=== PATIENT | male | born 1970 | race American Indian/Alaskan Native ===

== ENCOUNTER 2017-08-27 10:14 | Outpatient (CLI) | payer MEDICAID ==
[2017-08-27 11:11] LABS: INR 1.98 (0.87-1.13)
== END 2017-08-27 10:15 | disposition home or self-care (01) ==
LOC: LAB 10:14
DX: I50.22 Chronic systolic (congestive) heart failure (principal); Z95.811 Presence of heart assist device
CPT/HCPCS: 36415; 85610

== ENCOUNTER 2017-09-07 10:29 | Outpatient (CLI) | payer MEDICAID ==
[2017-09-07 10:57] LABS: INR 2.57 (0.87-1.13)
[2017-09-07 11:03] LABS: Anion Gap 20 mmol/L; BUN/Creatinine Ratio 15; Blood Urea Nitrogen 22 mg/dL (9-20); Calcium 9.3 mg/dL (8.4-10.2); Carbon Dioxide 23 mmol/L (22-30); Chloride 101.4 mmol/L (98-107); Glucose 169 mg/dL (75-100); Potassium 4.5 mmol/L (3.6-5.0); Sodium 140 mmol/L (137-145)
== END 2017-09-07 10:30 | disposition home or self-care (01) ==
LOC: LAB 10:29
PROVIDERS: ATTEND Internal Medicine Cardiovascular Disease
DX: I50.22 Chronic systolic (congestive) heart failure (principal); Z79.01 Long term (current) use of anticoagulants; Z95.811 Presence of heart assist device
CPT/HCPCS: 36415; 80048; 83735; 85610

== ENCOUNTER 2017-09-10 08:36 | Outpatient (CLI) | payer MEDICAID ==
[2017-09-10 09:02] LABS: INR 2.97 (0.87-1.13)
== END 2017-09-10 08:37 | disposition home or self-care (01) ==
LOC: LAB 08:36
DX: Z48.812 Encounter for surgical aftercare following surgery on the circulatory system (principal); Z95.811 Presence of heart assist device; Z79.01 Long term (current) use of anticoagulants
CPT/HCPCS: 36415; 85610

== ENCOUNTER 2017-09-14 10:30 | Outpatient (CLI) | payer MEDICAID ==
[2017-09-14 10:55] LABS: INR 2.11 (0.87-1.13)
== END 2017-09-14 10:31 | disposition home or self-care (01) ==
LOC: LAB 10:30
DX: Z48.812 Encounter for surgical aftercare following surgery on the circulatory system (principal); Z95.811 Presence of heart assist device; Z79.01 Long term (current) use of anticoagulants
CPT/HCPCS: 36415; 85610

== ENCOUNTER 2017-09-17 13:37 | Outpatient (CLI) | payer MEDICAID ==
[2017-09-17 14:14] LABS: INR 2.09 (0.87-1.13)
== END 2017-09-17 13:38 | disposition home or self-care (01) ==
LOC: LAB 13:37
DX: Z48.812 Encounter for surgical aftercare following surgery on the circulatory system (principal); Z95.811 Presence of heart assist device
CPT/HCPCS: 36415; 85610

== ENCOUNTER 2017-09-21 09:54 | Outpatient (CLI) | payer MEDICAID ==
[2017-09-21 11:10] LABS: INR 2.9 (0.87-1.13)
== END 2017-09-21 09:55 | disposition home or self-care (01) ==
LOC: LAB 09:54
DX: Z48.812 Encounter for surgical aftercare following surgery on the circulatory system (principal); Z95.811 Presence of heart assist device
CPT/HCPCS: 36415; 85610

== ENCOUNTER 2017-11-11 09:45 | Outpatient (CLI) | payer MEDICAID ==
[2017-11-11 10:09] LABS: INR 2.14 (0.87-1.13)
== END 2017-11-11 09:46 | disposition home or self-care (01) ==
LOC: LAB 09:45
DX: Z48.812 Encounter for surgical aftercare following surgery on the circulatory system (principal); Z95.811 Presence of heart assist device
CPT/HCPCS: 36415; 85610

== ENCOUNTER 2017-11-19 10:45 | Outpatient (CLI) | payer MEDICAID ==
[2017-11-19 11:34] LABS: INR 2.21 (0.87-1.13)
== END 2017-11-19 10:46 | disposition home or self-care (01) ==
LOC: LAB 10:45
PROVIDERS: ATTEND Surgery
DX: Z48.812 Encounter for surgical aftercare following surgery on the circulatory system (principal); Z95.811 Presence of heart assist device
CPT/HCPCS: 36415; 85610

== ENCOUNTER 2017-12-10 09:42 | Outpatient (CLI) | payer MEDICAID ==
[2017-12-10 10:33] LABS: INR 2.45 (0.87-1.13)
== END 2017-12-10 09:43 | disposition home or self-care (01) ==
LOC: LAB 09:42
PROVIDERS: ATTEND Surgery
DX: Z48.812 Encounter for surgical aftercare following surgery on the circulatory system (principal); Z95.811 Presence of heart assist device
CPT/HCPCS: 36415; 85610

== ENCOUNTER 2018-01-07 11:44 | Outpatient (CLI) | payer MEDICAID ==
[2018-01-07 12:12] LABS: INR 2.73 (0.87-1.13)
== END 2018-01-07 11:45 | disposition home or self-care (01) ==
LOC: LAB 11:44
PROVIDERS: ATTEND Surgery
DX: Z48.812 Encounter for surgical aftercare following surgery on the circulatory system (principal); Z95.811 Presence of heart assist device
CPT/HCPCS: 36415; 85610

== ENCOUNTER 2018-02-24 09:49 | Outpatient (CLI) | payer MEDICAID ==
[2018-02-24 10:18] LABS: INR 1.41 (0.87-1.13)
== END 2018-02-24 09:50 | disposition home or self-care (01) ==
LOC: LAB 09:49
PROVIDERS: ATTEND Surgery
DX: R79.89 Other specified abnormal findings of blood chemistry (principal); Z95.811 Presence of heart assist device
CPT/HCPCS: 36415; 85610

== ENCOUNTER 2018-03-01 10:27 | Outpatient (CLI) | payer MEDICAID ==
[2018-03-01 11:06] LABS: INR 2.43 (0.87-1.13)
== END 2018-03-01 10:28 | disposition home or self-care (01) ==
LOC: LAB 10:27
PROVIDERS: ATTEND Surgery
DX: R79.1 Abnormal coagulation profile (principal); Z95.811 Presence of heart assist device; Z79.01 Long term (current) use of anticoagulants
CPT/HCPCS: 36415; 85610

== ENCOUNTER 2018-03-24 09:54 | Outpatient (CLI) | payer MEDICAID ==
[2018-03-24 10:22] LABS: INR 2.73 (0.87-1.13)
== END 2018-03-24 09:55 | disposition home or self-care (01) ==
LOC: LAB 09:54
PROVIDERS: ATTEND Surgery
DX: Z48.812 Encounter for surgical aftercare following surgery on the circulatory system (principal); Z95.811 Presence of heart assist device; Z79.01 Long term (current) use of anticoagulants
CPT/HCPCS: 36415; 85610

== ENCOUNTER 2018-04-20 10:59 | Outpatient (CLI) | payer MEDICAID ==
[2018-04-20 12:11] LABS: INR 2.99 (0.87-1.13)
== END 2018-04-20 11:00 | disposition home or self-care (01) ==
LOC: LAB 10:59
PROVIDERS: ATTEND Surgery
DX: Z48.812 Encounter for surgical aftercare following surgery on the circulatory system (principal); Z95.811 Presence of heart assist device; Z79.01 Long term (current) use of anticoagulants
CPT/HCPCS: 36415; 85610

== ENCOUNTER 2018-05-18 10:06 | Outpatient (CLI) | payer MEDICAID ==
[2018-05-18 10:37] LABS: INR 1.67 (0.87-1.13)
== END 2018-05-18 10:07 | disposition home or self-care (01) ==
LOC: LAB 10:06
PROVIDERS: ATTEND Surgery
DX: Z51.81 Encounter for therapeutic drug level monitoring (principal); Z79.01 Long term (current) use of anticoagulants; Z95.811 Presence of heart assist device
CPT/HCPCS: 36415; 85610

== ENCOUNTER 2018-05-20 10:18 | Outpatient (CLI) | payer MEDICAID ==
[2018-05-20 10:57] LABS: INR 2.69 (0.87-1.13)
== END 2018-05-20 10:19 | disposition home or self-care (01) ==
LOC: LAB 10:18
PROVIDERS: ATTEND Surgery
DX: Z51.81 Encounter for therapeutic drug level monitoring (principal); Z95.811 Presence of heart assist device; Z79.01 Long term (current) use of anticoagulants; Z91.018 Allergy to other foods
CPT/HCPCS: 36415; 85610

== ENCOUNTER 2018-06-01 10:19 | Outpatient (CLI) | payer MEDICAID ==
[2018-06-01 11:05] LABS: INR 1.53 (0.87-1.13)
== END 2018-06-01 10:20 | disposition home or self-care (01) ==
LOC: LAB 10:19
PROVIDERS: ATTEND Surgery
DX: Z51.81 Encounter for therapeutic drug level monitoring (principal); Z95.811 Presence of heart assist device; Z79.01 Long term (current) use of anticoagulants; Z91.018 Allergy to other foods
CPT/HCPCS: 36415; 85610

== ENCOUNTER 2018-06-03 10:19 | Outpatient (CLI) | payer MEDICAID ==
[2018-06-03 11:05] LABS: INR 2.3 (0.87-1.13)
== END 2018-06-03 10:20 | disposition home or self-care (01) ==
LOC: LAB 10:19
PROVIDERS: ATTEND Surgery
DX: Z51.81 Encounter for therapeutic drug level monitoring (principal); Z79.01 Long term (current) use of anticoagulants; Z95.811 Presence of heart assist device
CPT/HCPCS: 36415; 85610

== ENCOUNTER 2018-06-08 10:22 | Outpatient (CLI) | payer MEDICAID ==
[2018-06-08 11:00] LABS: INR 2.01 (0.87-1.13)
== END 2018-06-08 10:23 | disposition home or self-care (01) ==
LOC: LAB 10:22
PROVIDERS: ATTEND Surgery
DX: Z51.81 Encounter for therapeutic drug level monitoring (principal); Z79.01 Long term (current) use of anticoagulants; Z95.811 Presence of heart assist device
CPT/HCPCS: 36415; 85610

== ENCOUNTER 2018-07-05 10:59 | Outpatient (CLI) | payer MEDICAID ==
[2018-07-05 11:29] LABS: INR 2.55 (0.87-1.13)
== END 2018-07-05 11:00 | disposition home or self-care (01) ==
LOC: LAB 10:59
PROVIDERS: ATTEND Surgery
DX: Z51.81 Encounter for therapeutic drug level monitoring (principal); Z79.01 Long term (current) use of anticoagulants; Z95.811 Presence of heart assist device
CPT/HCPCS: 36415; 85610

== ENCOUNTER 2020-03-07 14:05 | Outpatient (CLI) | payer MEDICAID | END 2020-03-07 14:06 | disposition home or self-care (01) | LOC: WOUND 14:05 | PROVIDERS: ATTEND Surgery | DX: T81.89XD Other complications of procedures, not elsewhere classified, subsequent encounter (principal); I11.0 Hypertensive heart disease with heart failure; I50.9 Heart failure, unspecified; I25.2 Old myocardial infarction; R73.09 Other abnormal glucose; Z95.0 Presence of cardiac pacemaker; Z94.1 Heart transplant status; Y83.8 Other surgical procedures as the cause of abnormal reaction of the patient, or of later complication, without mention of misadventure at the time of the procedure | CPT/HCPCS: 97605 ==